=== PATIENT | male | born 1960 | race Caucasian/White ===

== ENCOUNTER 2017-12-14 20:16 | Emergency (ER) | payer OTHER ==
[~2017-12-14] VITALS: Ht 185.4 cm; Wt 103.0 kg
[~2017-12-14 20:16] MED LIST: Acetaminophen PO; BUPR100T6 PO; ESOM20CA30 PO; EZET10TA18 PO; GEMF600T PO; Guaifenesin/Dextromethorphan PO; HYDR12.553 PO; HYDR12.58 PO; IBUP800T19 PO; LISI-334 PO; LOSA50TA6 PO; PANT40TA3 PO
[2017-12-14] MEDS ORDERED: BENZ-8 PO (20:48)
--- NOTE | 2017-12-14 20:49 | PHYS DOC ---
Past History Past Medical History: Arthritis, GERD, High Cholesterol, Hypertension, Other Past Surgical History: Tonsillectomy, Other Smoking: Non-smoker Alcohol Use: Occasionally Drug Use: None Adult General HPI HPI 56-year-old male with a history of hypertension and no previous workup for or diagnosis of heart disease now presents to the emergency room complaining of left-sided chest wall pain. Patient has been coughing for several days. Earlier tonight he had a sharp pain is left lateral rib area. This pain is reproducible with palpation of the area down from his axilla. He is not short of breath. No fevers chills sweats or shaking chills. No headache or stiff neck. No exertional chest pain no nausea vomiting or diaphoresis. Patient does not have pleurisy. Pain is easily reproducible with palpation and twisting range of motion. He does not smoke or have high cholesterol. No diabetes or family history of coronary artery disease at a young age. Patient's only family history was a grandmother had heart disease in her 90s. His never had a stress test or catheterization Review of Systems Review of Systems Constitutional: Denies fever or chills [] Eyes: Denies change in visual acuity, redness, or eye pain [] HENT: Denies nasal congestion or sore throat [] Respiratory: Denies cough or shortness of breath [] Cardiovascular: No additional information not addressed in HPI [] GI: Denies abdominal pain, nausea, vomiting, bloody stools or diarrhea [] : Denies dysuria or hematuria [] Musculoskeletal: Denies back pain or joint pain [] Integument: Denies rash or skin lesions [] Neurologic: Denies headache, focal weakness or sensory changes [] Endocrine: Denies polyuria or polydipsia [] All other systems were reviewed and found to be within normal limits, except as documented in this note. Allergies Allergies Allergies Coded Allergies Type Severity Reaction Last Updated Verified No Known Drug Allergies 05/17/14 No Physical Exam Physical Exam Well-appearing patient no acute distress. Left lateral chest wall in the midaxillary line with mild tenderness easily reproducible with palpation. No bony tenderness or crepitus. No skin changes. No visible asymmetry or abnormality. Clear lungs regular rate and rhythm no tachycardia. Benign exam Constitutional: Well developed, well nourished, no acute distress, non-toxic appearance. [] HENT: Normocephalic, atraumatic, bilateral external ears normal, oropharynx moist, no oral exudates, nose normal. [] Eyes: PERRLA, EOMI, conjunctiva normal, no discharge. [] Neck: Normal range of motion, no tenderness, supple, no stridor. [] Cardiovascular:Heart rate regular rhythm, no murmur [] Lungs & Thorax: Bilateral breath sounds clear to auscultation [] Abdomen: Bowel sounds normal, soft, no tenderness, no masses, no pulsatile masses. [] Skin: Warm, dry, no erythema, no rash. [] Back: No tenderness, no CVA tenderness. [] Extremities: No tenderness, no cyanosis, no clubbing, ROM intact, no edema. [] Neurologic: Alert and oriented X 3, normal motor function, normal sensory function, no focal deficits noted. [] Psychologic: Affect normal, judgement normal, mood normal. [] EKG EKG EKG with normal sinus rhythm at 68 left axis deviation no STEMI unremarkable study interpreted by me[] Radiology/Procedures Radiology/Procedures Chest x-ray with chronic changes no acute disease interpreted by me[] Course & Med Decision Making Course & Med Decision Making Pertinent Labs and Imaging studies reviewed. (See chart for details) Signs and symptoms consistent with easily reproducible chest wall tenderness and well-appearing patient is on the cardiac risk factors are hypertension and maleness. Patient has had recent dry cough for several days, no doubt etiology for chest wall strain causing patient's symptoms. He has a benign exam and is nontoxic appearing. Anticipate outpatient follow-up if cardiac workup is unremarkable. No further workup or treatment will be indicated. Patient agrees with outpatient follow-up and strict return precautions will be given [] Dragon Disclaimer Dragon Disclaimer This electronic medical record was generated, in whole or in part, using a voice recognition dictation system. Departure Departure: Impression: Primary Impression: Chest wall pain Disposition: HOME, SELF-CARE Condition: GOOD Referrals: VIVI CROSS (PCP) Patient Instructions: Chest Wall Pain Additional Instructions: You're experiencing chest wall pain. This is likely a result of muscle strain from your recent coughing episodes. Take Mucinex DM [id number] for cough as well as Tessalon as prescribed as needed. Take ibuprofen 800 mg every 6 hours and Tylenol as well if you have pain incompletely relieved by the ibuprofen. Do warm soaks and gentle stretches. Follow-up with your doctor in 1- 2 days for reevaluation and further workup as needed. Return immediately for new severe worsening symptoms Scripts Benzonatate (BENZONATATE) 100 Mg Capsule 1 CAP PO TID, #30 CAP Prov: NATALIA MORALES MD 12/14/17 NATALIA MORALES MD Dec 14, 2017 20:49
[2017-12-14] MEDS ORDERED: ASPIRIN 81 MG TAB.CHEW PO ONE (21:00)
[2017-12-14 21:30] LABS: BASO % 0 % (0-3); EOS # 0.1 x10^3/uL (0.0-0.7); EOS % 1 % (0-3); HEMATOCRIT 45.7 % (39.0-53.0); HEMOGLOBIN 15.7 g/dL (13.0-17.5); LYMPH % 15 % (24-48); MEAN CORPUSCULAR HEMOGLOBIN 28 pg (25-35); MEAN CORPUSCULAR HGB CONC 34 g/dL (31-37); MEAN CORPUSCULAR VOLUME 83 fL (79-100); MONO # 0.5 x10^3/uL (0.0-1.1); MONO % 8 % (0-9); NEUT # 4.8 x10^3uL (1.8-7.7); NEUT % 76 % (31-73); PLATELET COUNT 155 x10^3/uL (140-400); RED BLOOD COUNT 5.54 x10^6/uL (4.30-5.70); WHITE BLOOD COUNT 6.3 x10^3/uL (4.0-11.0)
[2017-12-14 21:39] LABS: ALBUMIN 3.7 g/dL (3.4-5.0); ALBUMIN/GLOBULIN RATIO 0.9 (1.0-1.7); CALCIUM 8.7 mg/dL (8.5-10.1); GFR 77.9; POTASSIUM 3.9 mmol/L (3.5-5.1); TOTAL BILIRUBIN 0.4 mg/dL (0.2-1.0); TOTAL PROTEIN 7.7 g/dL (6.4-8.2)
[2017-12-14 21:55] VITALS: BP 156/98
--- NOTE | 2017-12-15 07:47 | RAD ---
Single view of the Chest 12/14/2017 10:51 PM Indication: CHEST PAIN Comparison: Chest radiograph March 31, 2015 Findings: There is no focal consolidation or infiltrate identified. There is no effusion or pneumothorax. Calcified granulomata in the right lower lobe are stable. Heart size is normal. No osseous abnormality is identified. Impression: No evidence of acute cardiopulmonary process
== END 2017-12-14 22:08 | disposition home or self-care (01) ==
LOC: ER 20:16
DX: R07.89 Other chest pain (principal); K21.9 Gastro-esophageal reflux disease without esophagitis; I10 Essential (primary) hypertension; E78.00 Pure hypercholesterolemia, unspecified
CPT/HCPCS: 36415; 71045; 80053; 84484; 85025; 99285-25

== ENCOUNTER 2018-11-24 17:41 | Emergency (ER) | payer OTHER ==
[~2018-11-24] VITALS: Ht 185.4 cm; Wt 103.0 kg
[~2018-11-24 17:41] MED LIST changes: +BENZ-8 PO; -LOSA50TA6 PO; +LOSA50TA86 PO
[2018-11-24] MEDS: IV NORMAL SALINE 1,000ML 1,000 ML IV ONE (18:00)
--- NOTE | 2018-11-24 18:21 | PHYS DOC ---
Past History Past Medical History: Arthritis, GERD, High Cholesterol, Hypertension, Pneumonia Past Surgical History: Tonsillectomy Smoking: Non-smoker Alcohol Use: Rarely Drug Use: None Adult General Chief Complaint Chief Complaint: HYPERTENSION HPI HPI 57-year-old male presents with intermittent headache for the last 3 days and elevated blood pressure. The patient woke up Friday morning with a headache in the front of his head above his eyes. It is a low level ache. It lasted all day. He woke up with this headache again on Friday but it went away during the day. Headache returned this morning and persisted all day. The patient has had 3 nosebleeds in the last 3 days, one lasting 30 minutes on Friday. Patient is also noticed his blood pressure is at least 160s over 110s. He has been taking his medications as prescribed. He has had no change in diet or activity. He denies trauma. He went to his PCPs office today who gave him 25 mg of metoprolol and advised that he come to the emergency room. The patient denies fever or chills. He has not been feeling ill. He has had a right flank pain that radiates across his back last couple of days. It hurts most with deep breaths and movement. He is unsure why this pain has started. Review of Systems Review of Systems Constitutional: Denies fever or chills [] Eyes: Denies change in visual acuity, redness, or eye pain [] HENT: Recent bloody noses [] Respiratory: Denies cough or shortness of breath [] Cardiovascular: No additional information not addressed in HPI [] GI: Denies abdominal pain, nausea, vomiting, bloody stools or diarrhea [] : Denies dysuria or hematuria [] Musculoskeletal: Sided flank and back pain[] Integument: Denies rash or skin lesions [] Neurologic: Headache. Denies focal weakness or sensory changes [] Endocrine: Denies polyuria or polydipsia [] All other systems were reviewed and found to be within normal limits, except as documented in this note. Current Medications Current Medications Current Medications Medications (Trade) Dose Ordered Sig/Celine Start Time Stop Time Status Last Admin Dose Admin Sodium Chloride 1,000 ml @ 1,000 mls/hr 1X ONCE 11/24/18 18:00 11/24/18 18:59 Allergies Allergies Allergies Coded Allergies Type Severity Reaction Last Updated Verified No Known Drug Allergies 05/17/14 No Physical Exam Physical Exam Constitutional: Well developed, well nourished, no acute distress, non-toxic appearance. [] HENT: Normocephalic, atraumatic, bilateral external ears normal, oropharynx moist, no oral exudates, nose normal. [] Eyes: PERRLA, EOMI, conjunctiva normal, no discharge. [] Neck: Normal range of motion, no tenderness, supple, no stridor. [] Cardiovascular:Heart rate regular rhythm, no murmur [] Lungs & Thorax: Bilateral breath sounds clear to auscultation [] Abdomen: Bowel sounds normal, soft, no tenderness, no masses, no pulsatile masses. [] Skin: Warm, dry, no erythema, no rash. [] Back: No tenderness, no CVA tenderness. [] Extremities: No tenderness, no cyanosis, no clubbing, ROM intact, no edema. [] Neurologic: Alert and oriented X 3, normal motor function, normal sensory function, no focal deficits noted. [] Psychologic: Affect normal, judgement normal, mood normal. [] Current Patient Data Vital Signs Vital Signs Date Time Temp Pulse Resp B/P (MAP) Pulse Ox O2 Delivery O2 Flow Rate FiO2 11/24/18 18:14 98.2 66 18 96 Room Air EKG EKG Sinus rhythm, leftward axis, no ST elevations or depression.[] Radiology/Procedures Radiology/Procedures [] Impressions: Examination: CT HEAD WO CONTRAST History: Headache, dizziness, hypertension Comparison/Correlation: None Findings: Axial images of the head were obtained without contrast. Ventricles are normal size. No intracranial hemorrhage, midline shift, or mass effect. Globes and optic nerves are unremarkable. Bony structures are intact. Visualized paranasal sinuses are unremarkable. Impression: No acute process. Electronically signed by: Daniel Gonzalez MD (11/24/2018 7:18 PM) [facility] DICTATED AND SIGNED BY: DANIEL GONZALEZ MD DATE: 11/24/181915 CC: HANNAH LAZCANO DO; VIVI CROSS Course & Med Decision Making Course & Med Decision Making Pertinent Labs and Imaging studies reviewed. (See chart for details) Asians head CT is unremarkable. His chest x-ray is unremarkable. His labs and urinalysis are unremarkable. We have treated his headache with 30 mg of Toradol IV, 25 mg of Benadryl IV, 10 mg of Reglan IV, 1 L normal saline. Asians headache is much improved at this time. He still has high blood pressure. I will give him 0.1 mg of clonidine. This has improved his blood pressure slightly to 171/91. He is point with his PCP on to discuss his hypertension management. The patient is stable for discharge at this time. [] Dragon Disclaimer Dragon Disclaimer This electronic medical record was generated, in whole or in part, using a voice recognition dictation system. Departure Departure: Impression: Primary Impression: Hypertension Additional Impression: Headache Disposition: HOME, SELF-CARE Condition: STABLE Referrals: VIVI CROSS (PCP) Patient Instructions: Hypertension Problem Qualifiers Primary Impression: Hypertension Hypertension type: essential hypertension Qualified Codes: I10 - Essential ( primary) hypertension Additional Impression: Headache Headache type: other vascular headache Qualified Codes: G44.1 - Vascular headache, not elsewhere classified HANNAH LAZCANO DO Nov 24, 2018 18:21
[2018-11-24 18:22] LABS: BASO % 1 % (0-3); EOS # 0.1 x10^3/uL (0.0-0.7); EOS % 2 % (0-3); HEMATOCRIT 42.7 % (39.0-53.0); HEMOGLOBIN 15.1 g/dL (13.0-17.5); LYMPH # 1.8 x10^3/uL (1.0-4.8); LYMPH % 32 % (24-48); MEAN CORPUSCULAR HEMOGLOBIN 29 pg (25-35); MEAN CORPUSCULAR HGB CONC 35 g/dL (31-37); MEAN CORPUSCULAR VOLUME 83 fL (79-100); MONO # 0.4 x10^3/uL (0.0-1.1); MONO % 7 % (0-9); NEUT # 3.2 x10^3uL (1.8-7.7); NEUT % 58 % (31-73); PLATELET COUNT 222 x10^3/uL (140-400); RED BLOOD COUNT 5.15 x10^6/uL (4.30-5.70); RED CELL DISTRIBUTION WIDTH 13.2 % (11.5-14.5); WHITE BLOOD COUNT 5.4 x10^3/uL (4.0-11.0)
[2018-11-24 18:40] LABS: ALBUMIN 3.9 g/dL (3.4-5.0); ALBUMIN/GLOBULIN RATIO 1.1 (1.0-1.7); CALCIUM 8.9 mg/dL (8.5-10.1); CREATININE 0.9 mg/dL (0.7-1.3); GFR 87.6; POTASSIUM 3.7 mmol/L (3.5-5.1); TOTAL BILIRUBIN 0.3 mg/dL (0.2-1.0); TOTAL PROTEIN 7.3 g/dL (6.4-8.2)
[2018-11-24] MEDS: METOCLOPRAMIDE HCL 10 MG/2 ML VIAL. IV ONE (19:05)
[2018-11-24] MEDS: diphenhydrAMINE 50 MG/ML VIAL IVP ONE (19:05)
[2018-11-24] MEDS: KETOROLAC 30 MG/ML VIAL. IV ONE (19:05)
[2018-11-24 19:12] LABS: BILIRUBIN,URINE NEG (NEG); CLARITY,URINE CLEAR; COLOR,URINE YELLOW; GLUCOSE,URINE NEG (NEG)
[2018-11-24 19:13] LABS: BACTERIA,URINE FEW /HPF (0-FEW); NITRITE,URINE NEG (NEG); UROBILINOGEN,URINE 0.2 mg/dL (0.2 mg/dL); WBC,URINE OCC /HPF (0-4)
--- NOTE | 2018-11-24 19:22 | RAD ---
Examination: CT HEAD WO CONTRAST History: Headache, dizziness, hypertension Comparison/Correlation: None Findings: Axial images of the head were obtained without contrast. Ventricles are normal size. No intracranial hemorrhage, midline shift, or mass effect. Globes and optic nerves are unremarkable. Bony structures are intact. Visualized paranasal sinuses are unremarkable. Impression: No acute process. Electronically signed by: Daniel Snowden MD (11/24/2018 7:18 PM) [facility]
[2018-11-24] MEDS: cloNIDine HCL 0.1 MG TABLET PO ONE (20:25)
[2018-11-24 20:50] VITALS: BP 171/91
--- NOTE | 2018-11-24 22:27 | RAD ---
Examination: CHEST PA LATERAL History: Chest pain, short of air, dizziness, headache, HTN Comparison/Correlation: 12/14/2017 portable chest x-ray exam Findings: PA and lateral views of chest were obtained. Heart size and pulmonary vasculature are normal. No infiltrate or pleural effusion. No pneumothorax. Bony structures are unremarkable. Impression: No active disease. Electronically signed by: Daniel Snowden MD (11/24/2018 10:23 PM) [facility]
--- NOTE | 2018-11-25 21:40 | EKG ---
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
== END 2018-11-24 20:56 | disposition home or self-care (01) ==
LOC: ER 17:41
DX: I10 Essential (primary) hypertension (principal); G44.1 Vascular headache, not elsewhere classified; R42 Dizziness and giddiness; M19.90 Unspecified osteoarthritis, unspecified site; K21.9 Gastro-esophageal reflux disease without esophagitis; E78.00 Pure hypercholesterolemia, unspecified
CPT/HCPCS: 36415; 70450; 71046; 80053; 81001; 84484; 85025; 85610; 85730; 93005; 96361; 96374; 96375; 99284; J1200; J1885; J2765; J7030

== ENCOUNTER 2020-08-27 09:28 | Emergency (ER) | payer OTHER ==
[~2020-08-27] VITALS: Ht 185.4 cm; Wt 109.1 kg
[2020-08-27 09:28] VITALS: BP 152/86
[~2020-08-27 09:28] MED LIST changes: -EZET10TA18 PO; +EZET10TA20 PO
--- NOTE | 2020-08-27 09:44 | PHYS DOC ---
Past History Past Medical History: Anxiety, Arthritis, GERD, High Cholesterol, Hypertension, Pneumonia Past Surgical History: Tonsillectomy Smoking: Non-smoker Alcohol Use: Rarely Drug Use: None Adult General Chief Complaint Chief Complaint: CHEST PAIN [facility] HPI Patient is a 59-year-old male who presents with chest pain. Patient reports having 3 episodes overnight which wake him from sleep. Most recent episode was approximately 2-1/2 prior to arrival and awoke him from sleep. Patient describes substernal nonradiating pressure that was 7 out of 10 in severity. All episodes resolved without any intervention in less than 60 seconds. Nonetheless, patient has had recent right total knee replacement within past 4 weeks so he was concerned for pulmonary embolism and/or heart attack prompting him to call EMS for evaluation today. Patient has numerous risk factors such as hypertension, obesity, and hyperlipidemia. He does not have a family history of cardiovascular disease, no tobacco use, no history of pulmonary embolism, no hemoptysis, no long distance travel or hormone use. He has been taking 324 mg aspirin daily since his surgery as advised by his surgeon. Patient received 324 mg aspirin in route and is asymptomatic on arrival Review of Systems Review of Systems Fourteen body systems of review of systems have been reviewed. See HPI for pertinent positives and negative responses, other young all other systems are negative, non-pertinent or non-contributory Allergies Allergies Allergies Coded Allergies Type Severity Reaction Last Updated Verified No Known Drug Allergies 05/17/14 No Physical Exam Physical Exam Constitutional: Well developed, well nourished, no acute distress, non-toxic ap pearance. HENT: Normocephalic, atraumatic, bilateral external ears normal, oropharynx moist, no oral exudates, nose normal. Eyes: PERRLA, EOMI, conjunctiva normal, no discharge. Neck: Normal range of motion, no tenderness, supple, no stridor. Cardiovascular: Heart rate regular, sinus rhythm, no murmurs rubs or gallops Lungs & Thorax: Bilateral breath sounds clear to auscultation Abdomen: Bowel sounds normal, soft, no tenderness, no masses, no pulsatile masses. Nonsurgical abdomen, no peritoneal signs Skin: Warm, dry, no erythema, no rash. Back: No tenderness, no CVA tenderness. Extremities: No cyanosis, no clubbing. Tenderness over right knee with mild edema and ecchymosis consistent and at baseline per patient since his surgery less than 4 weeks ago, no other concerning signs or symptoms of infection at this time Neurologic: Alert and oriented X 3, grossly normal motor & sensory function, no focal deficits noted. Psychologic: Affect normal, judgement normal, anxious mood Current Patient Data Vital Signs Vital Signs Date Time Temp Pulse Resp B/P (MAP) Pulse Ox O2 Delivery O2 Flow Rate FiO2 08/27/20 09:28 97.7 60 16 152/86 (108) 96 Room Air Lab Results Laboratory Tests Test 08/27/20 09:36 White Blood Count 5.6 x10^3/uL (4.0-11.0) Red Blood Count 4.45 x10^6/uL (4.30-5.70) Hemoglobin 13.3 g/dL (13.0-17.5) Hematocrit 39.1 % (39.0-53.0) Mean Corpuscular Volume 88 fL (79-100) Mean Corpuscular Hemoglobin 30 pg (25-35) Mean Corpuscular Hemoglobin Concent 34 g/dL (31-37) Red Cell Distribution Width 12.9 % (11.5-14.5) Platelet Count 366 x10^3/uL (140-400) Neutrophils (%) (Auto) 64 % (31-73) Lymphocytes (%) (Auto) 26 % (24-48) Monocytes (%) (Auto) 7 % (0-9) Eosinophils (%) (Auto) 2 % (0-3) Basophils (%) (Auto) 1 % (0-3) Neutrophils # (Auto) 3.6 x10^3uL (1.8-7.7) Lymphocytes # (Auto) 1.5 x10^3/uL (1.0-4.8) Monocytes # (Auto) 0.4 x10^3/uL (0.0-1.1) Eosinophils # (Auto) 0.1 x10^3/uL (0.0-0.7) Basophils # (Auto) 0.1 x10^3/uL (0.0-0.2) D-Dimer (Betty) 4.89 mg/L (0.00-0.50) Sodium Level 136 mmol/L (136-145) Potassium Level 4.4 mmol/L (3.5-5.1) Chloride Level 100 mmol/L (98-107) Carbon Dioxide Level 28 mmol/L (21-32) Anion Gap 8 (6-14) Blood Urea Nitrogen 17 mg/dL (8-26) Creatinine 0.9 mg/dL (0.7-1.3) Estimated GFR (Cockcroft-Gault) 87.0 BUN/Creatinine Ratio 19 (6-20) Glucose Level 147 mg/dL (70-99) Calcium Level 9.5 mg/dL (8.5-10.1) Total Bilirubin 0.6 mg/dL (0.2-1.0) Aspartate Amino Transf (AST/SGOT) 29 U/L (15-37) Alanine Aminotransferase (ALT/SGPT) 37 U/L (16-63) Alkaline Phosphatase 69 U/L (46-116) Troponin I Quantitative < 0.017 ng/mL (0-0.055) BX-Blb-C-Type Natriuretic Peptide 40 pg/mL (0-124) Total Protein 8.0 g/dL (6.4-8.2) Albumin 3.8 g/dL (3.4-5.0) Albumin/Globulin Ratio 0.9 (1.0-1.7) Lipase 58 U/L (73-393) EKG EKG EKG ordered and interpreted by myself at 0940 hrs. as sinus rhythm at 53 bpm, unremarkable intervals, no axis deviation, no acute ischemic findings, no STEMI Radiology/Procedures Radiology/Procedures PROCEDURE: PORTABLE CHEST 1V Chest AP portable at 0909: Reason for examination: Chest pain. Comparison is made to previous study dated 11/24/2018. The heart size is normal. Mediastinum is unremarkable. Lung pena are clear. No acute bony abnormalities are seen. IMPRESSION: No acute cardiopulmonary disease evident. Electronically signed by: Briana Hernandez MD (08/27/2020 9:56 AM) [id number] PROCEDURE: CT ANGIOGRAPHY CHEST CTA chest with contrast dated 08/27/2020. Comparison made to 03/31/2015. CLINICAL INDICATION: Shortness breath. Chest pain. TECHNIQUE: Contiguous axial imaging the chest performed following intravenous and demonstration of 100 cc Omnipaque 350. Study was performed as dedicated PE protocol with thin cut coronal MIPS 3-D reconstruction. One or more of the following individualized dose reduction techniques were utilized for this examination: 1. Automated exposure control 2. Adjustment of the mA and/or kV according to patient size 3. Use of iterative reconstruction technique FINDINGS: Contrast bolus is adequate. No evidence of central, lobar or segmental pulmonary embolus. Subsegmental branches are not well evaluated based on technique. Heart size is mildly enlarged. No pericardial effusion. Scattered coronary calcifications. Ectasia of the ascending thoracic aorta measuring up to 4 cm transverse. No mediastinal, hilar or axillary lymphadenopathy. There are nonpathologic enlarged subcarinal and bilateral hilar lymph nodes. Thyroid gland is unremarkable. Central airways are patent. There is some mild groundglass density in the deep dependent lung bases and posterior bilateral upper lobes. A 3 mm noncalcified subpleural nodule in the right upper lobe on image 36, nonspecific but unchanged. No pleural effusion. No pneumothorax. Limited images of upper abdomen show diffuse low-density of the liver suggesting fatty infiltration. Liver is somewhat enlarged. Bone windows show no acute findings. Multilevel spondylosis. IMPRESSION: 1. No evidence of central, lobar or segmental pulmonary embolus. 2. Coronary artery calcifications and mild ectasia of the ascending thoracic aorta. 3. Nonspecific patchy groundglass opacity within both lungs. 4. Small noncalcified pulmonary nodule in the right upper lobe, nonspecific but unchanged from prior study. 5. Hepatomegaly and hepatic steatosis. Electronically signed by: Shahriar Riggins MD (08/27/2020 12:09 PM) [facility] Heart Score HEART Score for Chest Pain: HEART Score for Chest Pain Response (Comments) Value History Moderately Suspicious 1 ECG Normal 0 Age >45 - < 65 1 Risk Factors >3 Risk Factors or Hx CAD 2 Troponin < Normal Limit 0 Total 4 Risk Factors: Risk Factors: DM, Current or recent (<one month) smoker, HTN, HLP, family history of CAD, obesity. Risk Scores: Risk Factors: DM, Current or recent (<one month) smoker, HTN, HLP, family his tory of CAD, obesity. Course & Med Decision Making Course & Med Decision Making Pertinent Labs and Imaging studies reviewed. (See chart for details) I discussed with patient most likely diagnosis of noncardiac chest pain versus anxiety. I discussed patient's work-up at length in addition to his elevated heart score. Last cardiac stress test was performed in 2004 and unremarkable, no history of cardiac stents etc. I disclosed this might be an acute presentation of more concerning pathology and offered admission but patient declined, he has been symptom-free since arrival and wanting to go home. He has good outpatient follow-up, can be seen in upcoming 1 to 6 days time which I feel is appropriate Strict return precautions were discussed with good understanding by patient, all questions and concerns addressed prior to ER departure in stable condition Dragon Disclaimer Dragon Disclaimer This electronic medical record was generated, in whole or in part, using a voice recognition dictation system. PERC Rule for PE PERC Rule for PE Response (Comments) Value Age > 50: Yes 1 HR > 100: No 0 Sa02 on room air <95%: No 0 Unilateral leg swelling: Yes (appropriate s/p Rt TKA, negative bilateral kriss sign) 1 Hemoptysis: No 0 Recent surgery or trauma: Yes 1 Prior PE or DVT: No 0 Hormone use: No 0 Total 3 Departure Departure: Impression: Primary Impression: Chest pain, unspecified Disposition: 01 DC HOME SELF CARE/HOMELESS Condition: STABLE Referrals: VIVI CROSS (PCP) Patient Instructions: Chest Pain (Nonspecific) MERNA MONTAÑO DO Aug 27, 2020 09:44
--- NOTE | 2020-08-27 09:59 | RAD ---
Chest AP portable at 0909: Reason for examination: Chest pain. Comparison is made to previous study dated 11/24/2018. The heart size is normal. Mediastinum is unremarkable. Lung pena are clear. No acute bony abnormalities are seen. IMPRESSION: No acute cardiopulmonary disease evident. Electronically signed by: Briana Hernandez MD (08/27/2020 9:56 AM) [id number]
[2020-08-27 10:23] LABS: BASO # 0.1 x10^3/uL (0.0-0.2); BASO % 1 % (0-3); EOS # 0.1 x10^3/uL (0.0-0.7); EOS % 2 % (0-3); HEMATOCRIT 39.1 % (39.0-53.0); HEMOGLOBIN 13.3 g/dL (13.0-17.5); LYMPH # 1.5 x10^3/uL (1.0-4.8); LYMPH % 26 % (24-48); MEAN CORPUSCULAR HEMOGLOBIN 30 pg (25-35); MEAN CORPUSCULAR HGB CONC 34 g/dL (31-37); MEAN CORPUSCULAR VOLUME 88 fL (79-100); MONO # 0.4 x10^3/uL (0.0-1.1); MONO % 7 % (0-9); NEUT # 3.6 x10^3uL (1.8-7.7); NEUT % 64 % (31-73); PLATELET COUNT 366 x10^3/uL (140-400); RED BLOOD COUNT 4.45 x10^6/uL (4.30-5.70); RED CELL DISTRIBUTION WIDTH 12.9 % (11.5-14.5); WHITE BLOOD COUNT 5.6 x10^3/uL (4.0-11.0)
[2020-08-27 10:31] LABS: CALCIUM 9.5 mg/dL (8.5-10.1); CREATININE 0.9 mg/dL (0.7-1.3); POTASSIUM 4.4 mmol/L (3.5-5.1)
[2020-08-27 10:43] LABS: ALBUMIN 3.8 g/dL (3.4-5.0); ALBUMIN/GLOBULIN RATIO 0.9 (1.0-1.7); TOTAL BILIRUBIN 0.6 mg/dL (0.2-1.0)
[2020-08-27] MEDS ORDERED: HYDROcodone/APAP 5/325MG 1 TAB TABLET PO ONE (11:15)
[2020-08-27] MEDS ORDERED: IOHEXOL 350 MG/ML 100 ML VIAL. IV ONE (11:30)
--- NOTE | 2020-08-27 12:12 | RAD ---
CTA chest with contrast dated 08/27/2020. Comparison made to 03/31/2015. CLINICAL INDICATION: Shortness breath. Chest pain. TECHNIQUE: Contiguous axial imaging the chest performed following intravenous and demonstration of 100 cc Omnipaque 350. Study was performed as dedicated PE protocol with thin cut coronal MIPS 3-D reconstruction. One or more of the following individualized dose reduction techniques were utilized for this examination: 1. Automated exposure control 2. Adjustment of the mA and/or kV according to patient size 3. Use of iterative reconstruction technique FINDINGS: Contrast bolus is adequate. No evidence of central, lobar or segmental pulmonary embolus. Subsegmental branches are not well evaluated based on technique. Heart size is mildly enlarged. No pericardial effusion. Scattered coronary calcifications. Ectasia of the ascending thoracic aorta measuring up to 4 cm transverse. No mediastinal, hilar or axillary lymphadenopathy. There are nonpathologic enlarged subcarinal and bilateral hilar lymph nodes. Thyroid gland is unremarkable. Central airways are patent. There is some mild groundglass density in the deep dependent lung bases and posterior bilateral upper lobes. A 3 mm noncalcified subpleural nodule in the right upper lobe on image 36, nonspecific but unchanged. No pleural effusion. No pneumothorax. Limited images of upper abdomen show diffuse low-density of the liver suggesting fatty infiltration. Liver is somewhat enlarged. Bone windows show no acute findings. Multilevel spondylosis. IMPRESSION: 1. No evidence of central, lobar or segmental pulmonary embolus. 2. Coronary artery calcifications and mild ectasia of the ascending thoracic aorta. 3. Nonspecific patchy groundglass opacity within both lungs. 4. Small noncalcified pulmonary nodule in the right upper lobe, nonspecific but unchanged from prior study. 5. Hepatomegaly and hepatic steatosis. Electronically signed by: Shahriar Riggins MD (08/27/2020 12:09 PM) [facility]
--- NOTE | 2020-08-27 17:15 | EKG ---
[address] [address] Test Date: 2020-08-27 Test Time: 09:33:51 Pat Name: GUNNAR FRASER Department: Room: Gender: M [employer] Install[employer]: : [id number] Requested By: MERNA MONTAÑO Order Number: [id number] Reading MD: Measurements Intervals [place] Rate: 53 P: 0 AK: 194 QRS: -15 QRSD: 98 T: 48 QT: 438 QTc: 413 Interpretive Statements SINUS RHYTHM LEFTWARD AXIS OTHERWISE NORMAL ECG RI6.02 No previous ECG available for comparison
== END 2020-08-27 12:40 | disposition home or self-care (01) ==
LOC: ER 09:28
DX: R07.89 Other chest pain (principal); R60.0 Localized edema; F41.9 Anxiety disorder, unspecified; M19.90 Unspecified osteoarthritis, unspecified site; K21.9 Gastro-esophageal reflux disease without esophagitis; E78.00 Pure hypercholesterolemia, unspecified; I10 Essential (primary) hypertension; Z90.89 Acquired absence of other organs
CPT/HCPCS: 36415; 71045; 71275; 80053; 83690; 83880; 84484; 85025; 85379; 93005; 99285; Q9967